=== PATIENT | female | born 1995 | race Caucasian/White ===

== ENCOUNTER 2022-09-24 13:14 | Day surgery (SDC) | payer BC, SELFPAY ==
--- NOTE | 2022-09-24 13:31 | US_ITS ---
[address] [address] Patient Name: CRICKET REYNA MRN: [id number] date: 1995 Sex: F Assigned Patient Location: US Current Patient Location: US Accession/Order Number: [id number] Exam Date: 09/24/2022 13:30 Report Date: 09/24/2022 14:45 At the request of: LEXUS GAMINO Procedure: US biopsy thyroid EXAMINATION: US biopsy thyroid HISTORY: Right thyroid mass COMPARISON: No relevant comparison available. TECHNIQUE: After obtaining informed consent, ultrasound-guided fine needle aspiration was performed in the usual sterile manner. FINDINGS: IMAGING: Ultrasound. BIOPSY NEEDLE: 25-gauge; 3 separate passes LOCATION: Right lobe 3.6 cm heterogeneous mass. SPECIMEN TYPE: Cellular tissue. LOCAL ANESTHETIC: Buffered Xylocaine. COMPLICATIONS: None. LABORATORY: Prepared slide smears and washings for cell block evaluation. OTHER: Negative. PATHOLOGY: Pending. An addendum will be added when results are available. IMPRESSION: 1. Uneventful ultrasound guided fine needle aspiration (FNA). 2. Pathology results are pending. Electronically authenticated by: YOVANI ARGUELLES Date: 09/24/2022 14:45
[2022-09-24 13:35] VITALS: BP 123/78; PULSE 75; O2SAT 100
[2022-09-24] MEDS: LIDOCAINE HCL 10 ML, SODIUM BICARBONATE 1 MEQ INJ (14:03)
[2022-09-24 14:35] VITALS: BMI 26.6
== END 2022-09-24 15:30 | disposition home or self-care (01) ==
PROVIDERS: Radiology Diagnostic Radiology; PCP Family Medicine; Visit Provider Otolaryngology
DX: E04.1 Nontoxic single thyroid nodule (principal)
CPT/HCPCS: 10005; 88108; 88160; 88173